=== PATIENT | male | born 1985 | race African-American/Black ===

== ENCOUNTER 2023-12-26 16:02 | Emergency (ER) | payer OTHER ==
[2023-12-26 16:27] VITALS: O2SAT 100
--- NOTE | 2023-12-26 16:34 | ED Physician Documentation ---
PD HPI UPPER EXT INJURY - Stated complaint Stated Complaint: RT THUMB PX - Chief complaint Chief Complaint: Ext Problem - History obtained from History obtained from: Patient - History of Present Illness Location: Right, Finger (thumb volar distal phalanx just beyond the DIP.) Where injury occurred: Home Timing - onset: How many months ago (he has noted a lump in end of thumb for months. Slightly bigger ecently. No pain nor tenderness. No redness. Had made appt with [facility] about it, but they were busy at his appt time today and referred him to the ER.) Timing - duration: Months Timing - details: Gradual onset Worsened by: No: Moving, Palpating Associated symptoms: Swelling. No: Weakness, Numbness Similar symptoms before: Has not had sx before PD PAST MEDICAL HISTORY - Past Medical History Past Medical History: Yes Cardiovascular: Hypertension - Past Surgical History Past Surgical History: No - Present Medications Home Medications: Ambulatory Orders Medication Instructions Recorded Confirmed Home Medications Unobtainable 12/26/23 12/26/23 [HOME MEDICATIONS UNOBTAINABLE] - Allergies Allergies/Adverse Reactions: Allergies Allergy/AdvReac Type Severity Reaction Status Date / Time No Known Drug Allergies Allergy Verified 12/26/23 16:20 - Social History Does the pt smoke?: Yes Smoking Status: Current some day smoker Does the pt drink ETOH?: No Does the pt have substance abuse?: No - Immunizations Immunizations are current?: Yes PD ED PE NORMAL - Vitals Vital signs reviewed: Yes - General General: Alert and oriented X 3, No acute distress, Well developed/nourished - Derm Derm: Normal color, Warm and dry - Extremities Extremities: Other (right thumb with rounded firm lump feeling under fatty tissue and feels unmoving. Not tender. No redness. ) Results - Rads (name of study) thumb xray Relevant Findings:: Prelim report reviewed (no bony defects. ), EMP independent interpretation of test PD Medical Decision Making - ED course Complexity details: considered differential (firm rounded lump about 3-4 mm size volar aspect. Not mobile. Xray without bony defect. Bedside US showing the area to have demarcated capsule looking appearance and fluid inside. Presume mucoid or ganglion cyst. ), d/w patient ED course: It does not hurt him and is at thumb tip, which would be sensitive to poke at. So shared discussion is to leave it alone unless it starts bothering him (tender, red, or signs of infection). Departure - Departure Disposition: 01 Home, Self Care Clinical Impression: Cyst of finger Condition: Stable Record reviewed to determine appropriate education?: Yes Follow-Up: [facility] [Provider Group] Comments: Your x-ray appears normal without any bones as, spurs, arthritic growth. Bedside ultrasound shows that area to be fluid-filled but demarcated so looking like a cyst. The ones in this area can be fluid out of the joint space which will be firm and hard. These are called ganglion cyst. Sometimes you can get other fluid collected for example from a deeper sweat gland or such called a mucoid cyst. Both of these are benign and do not need attention or attempts at decompression if they are not bothering you. Since this is not bothering you I would just leave it alone. At such time if it gets a little bit bigger or tender then the initial treatment would be attempt at needle decompression and see if it would stay away. Again most of the time these are just left alone. Forms: PCP List Discharge Date/Time: 12/26/23 17:40
--- NOTE | 2023-12-26 17:13 | XRAY Report ---
PROCEDURE: Finger(s) RT INDICATIONS: right thumb tip lump TECHNIQUE: AP hand, 2 views of the first finger(s) acquired. COMPARISON: None. FINDINGS: Bones: No fractures or dislocations. No suspicious bony lesions. Soft tissues: No suspicious soft tissue calcifications or masses. Possible mild prominence of the so ft tissues of the volar distal thumb. IMPRESSION: There may be mild prominence of the soft tissues of the volar distal thumb in the area of concern. So ft tissues are not well evaluated by radiograph, consider ultrasound or cross-sectional imaging for f urther evaluation. Reviewed by: Xavier Mccullough MD on 12/26/2023 5:12 PM PDT Approved by: Xavier Mccullough MD on 12/26/2023 5:12 PM PDT Station ID: [id number]
[2023-12-26 17:44] VITALS: BP 150/88
== END 2023-12-26 17:40 | disposition home or self-care (01) ==
LOC: ED 16:02
DX: L72.9 Follicular cyst of the skin and subcutaneous tissue, unspecified (principal); I10 Essential (primary) hypertension; F17.200 Nicotine dependence, unspecified, uncomplicated
CPT/HCPCS: 99283

== ENCOUNTER 2024-03-30 10:12 | Emergency (ER) | payer OTHER ==
[2024-03-30 10:40] LABS: EOSINOPHILS # (AUTO) 0.1 10^3/uL (0.0-0.7); EOSINOPHILS % (AUTO) 0.8 %; HGB - HEMOGLOBIN 15.2 g/dL (14.0-18.0); MEAN CORPUSCULAR VOLUME 79.8 fL (80.0-94.0); NEUTROPHILS # (AUTO) 3.6 10^3/uL (1.5-6.6)
[2024-03-30 10:45] LABS: BASOPHILS % (AUTO) 0.7 %; HCT - HEMATOCRIT 44.2 % (42.0-52.0); LYMPHOCYTES # (AUTO) 1.7 10^3/uL (1.5-3.5); LYMPHOCYTES % (AUTO) 27.8 %; MEAN CORPUSCULAR HEMOGLOBIN 27.4 pg (27.0-31.0); MEAN CORPUSCULAR HGB CONC 34.4 g/dL (32.0-36.0); MEAN PLATELET VOLUME 11.8 fL (7.4-11.4); MONOCYTES # (AUTO) 0.7 10^3/uL (0.0-1.0); MONOCYTES % (AUTO) 11.6 %; NEUTROPHILS % (AUTO) 58.8 %; PLT - PLATELET COUNT 244 10^3/uL (130-450); RED BLOOD COUNT 5.54 10^6/uL (4.70-6.10); RED CELL DISTRIBUTION WIDTH 12.1 % (12.0-15.0); WHITE BLOOD COUNT 6.1 x10^3/uL (4.8-10.8)
[2024-03-30 10:49] LABS: BILIRUBIN,URINE NEGATIVE (NEGATIVE); GLUCOSE, URINE (UA) NEGATIVE (NEGATIVE); KETONES,URINE (UA) NEGATIVE (NEGATIVE); LEUKOCYTE ESTERASE, URINE NEGATIVE (NEGATIVE); NITRITE,URINE NEGATIVE (NEGATIVE); OCCULT BLOOD,URINE NEGATIVE (NEGATIVE); PROTEIN,URINE NEGATIVE (NEGATIVE); UROBILINOGEN,URINE 0.2 (NORMAL) E.U./dL (NORMAL)
--- NOTE | 2024-03-30 10:54 | ED Physician Documentation ---
PD HPI ABD PAIN - Stated complaint Stated Complaint: RT SIDE ABD PX - Chief complaint Chief Complaint: Abd Pain - History obtained from History obtained from: Patient - History of Present Illness Timing - onset: Last night (onset during night of cramping then steady right lower abd pain to periumbilical area, associated with nausea and emesis, and watery/soft diarrheal movements several times, into this morning. Seen at [facility] and referred to ED.) Timing - duration: Hours (8) Timing - details: Gradual onset, Still present Quality: Cramping, Aching, Pain Associated symptoms: Nausea, Vomiting, Diarrhea, Loss of appetite. No: Constipation Similar symptoms before: Has not had sx before PD PAST MEDICAL HISTORY - Past Medical History Past Medical History: Yes Cardiovascular: Hypertension Respiratory: None Neuro: None Endocrine/Autoimmune: None GI: None : None HEENT: None Psych: None Musculoskeletal: None Derm: None - Past Surgical History Past Surgical History: No - Present Medications Home Medications: Ambulatory Orders Medication Instructions Recorded Confirmed Amox/Clav 875/125 [Augmentin] 1 each PO BID #10 tablet 03/30/24 Chlorthalidone 50 mg PO DAILY 03/30/24 03/30/24 Diphenoxylate/Atropine [Lomotil] 1 each PO QID PRN #10 tablet 03/30/24 Naproxen 500 mg PO BID #15 tab 03/30/24 Ondansetron Odt [Zofran] 4 mg TL Q6H PRN #10 tablet 03/30/24 - Allergies Allergies/Adverse Reactions: Allergies Allergy/AdvReac Type Severity Reaction Status Date / Time No Known Drug Allergies Allergy Verified 03/30/24 10:22 - Social History Does the pt smoke?: No Smoking Status: Former smoker Does the pt drink ETOH?: Yes Does the pt have substance abuse?: No - Immunizations Immunizations are current?: Yes - POLST Patient has POLST: No PD ED PE NORMAL - Vitals Vital signs reviewed: Yes - General General: Alert and oriented X 3, Well developed/nourished - Cardiac Cardiac: RRR, No murmur - Respiratory Respiratory: No respiratory distress, Clear bilaterally - Abdomen Abdomen: Normal bowel sounds, Soft, Non distended, No organomegaly, Other (focall tender RLQ with guarding, percussion and rebound tenderness in RLQ. Referred tenderness from LLQ to the right. Upper abd not tedner. ) Results - Vitals Vitals: Vital Signs - 24 hr 03/30/24 03/30/24 03/30/24 10:22 10:41 12:39 Temperature 36.5 C Heart Rate 80 63 69 Respiratory 16 16 Rate Blood Pressure 137/95 H 157/51 H 139/92 H O2 Saturation 99 96 96 03/30/24 14:00 Temperature 36.5 C Heart Rate 69 Respiratory 16 Rate Blood Pressure 121/88 H O2 Saturation 99 Oxygen O2 Source Room air - Labs Labs: Laboratory Tests 03/30/24 03/30/24 03/30/24 10:30 10:35 10:35 WBC 6.1 RBC 5.54 Hgb 15.2 Hct 44.2 MCV 79.8 L MCH 27.4 MCHC 34.4 RDW 12.1 Plt Count 244 MPV 11.8 H Neut # (Auto) 3.6 Lymph # (Auto) 1.7 Edmunds # (Auto) 0.7 Eos # (Auto) 0.1 Baso # (Auto) 0.0 Absolute Nucleated RBC 0.00 Nucleated RBC % 0.0 Sodium 133 L Potassium 2.6 L Chloride 90 L Carbon Dioxide 34 H Anion Gap 9.0 BUN 7 Creatinine 1.1 Estimated GFR (MDRD) 92 Glucose 107 H Calcium 10.6 H Magnesium Total Bilirubin 1.2 H AST 41 ALT 58 Alkaline Phosphatase 83 Total Protein 8.6 Albumin 5.3 Globulin 3.3 Albumin/Globulin Ratio 1.6 Lipase 40 Urine Color YELLOW Urine Clarity CLEAR Urine pH 7.0 Ur Specific [place] 1.010 Urine Protein NEGATIVE Urine Glucose (UA) NEGATIVE Urine Ketones NEGATIVE Urine Occult Blood NEGATIVE Urine Nitrite NEGATIVE Urine Bilirubin NEGATIVE Urine Urobilinogen 0.2 (NORMAL) Ur Leukocyte Esterase NEGATIVE Ur Microscopic Review NOT INDICATED Urine Culture Comments NOT INDICATED 03/30/24 10:35 WBC RBC Hgb Hct MCV MCH MCHC RDW Plt Count MPV Neut # (Auto) Lymph # (Auto) Edmunds # (Auto) Eos # (Auto) Baso # (Auto) Absolute Nucleated RBC Nucleated RBC % Sodium Potassium Chloride Carbon Dioxide Anion Gap BUN Creatinine Estimated GFR (MDRD) Glucose Calcium Magnesium 1.9 Total Bilirubin AST ALT Alkaline Phosphatase Total Protein Albumin Globulin Albumin/Globulin Ratio Lipase Urine Color Urine Clarity Urine pH Ur Specific [place] Urine Protein Urine Glucose (UA) Urine Ketones Urine Occult Blood Urine Nitrite Urine Bilirubin Urine Urobilinogen Ur Leukocyte Esterase Ur Microscopic Review Urine Culture Comments - Rads (name of study) abd/pelvic CT Relevant Findings:: Prelim report reviewed (wall inflammation of the ascending colon to more degree than rest of colon. Appendix normal. ), EMP independent interpretation of test PD Medical Decision Making - ED course Complexity details: reviewed results (CT showing wall inflammation of colon to mild degree, more notable ascending colon. Appendix is normal. ), re-evaluated patient (he is feeling better with less pain and now not nauseated with IV fluids/meds. ), considered differential (abd pain with local peritoneal signs on exam RLQ concering for appy. Though the amount of diarrhea is not common. Not having pain nor tender elsewhere. ), d/w patient ED course: onset during night of cramping then steady right lower abd pain to periumbilical area, associated with nausea and emesis, and watery/soft diarrheal movements several times, into this morning. Seen at [facility] clinic and referred to ED. Departure - Departure Disposition: 01 Home, Self Care Clinical Impression: Right lower quadrant abdominal pain, Diarrhea, Acute colitis Condition: Stable Record reviewed to determine appropriate education?: Yes Follow-Up: [facility] [Provider Group] Prescriptions: Amox/Clav 875/125 [Augmentin] 1 each PO BID #10 tablet Diphenoxylate/Atropine [Lomotil] 1 each PO QID PRN #10 tablet PRN Reason: Diarrhea Naproxen 500 mg PO BID #15 tab Ondansetron Odt [Zofran] 4 mg TL Q6H PRN #10 tablet PRN Reason: Nausea / Vomiting Comments: Your appendix is normal on the CT scan. You do have in particular an area of inflammation of the intestine nearby that area. This can be a viral cause or sometimes an irritation from foods or such. However given the localized area of the pain and inflammation on the scan, I be more inclined to think a bacterial infection locally (acute colitis). Will treat this with an anti-inflammatory and antibiotic. For symptoms nausea medicine and antidiarrhea medicine. To that add Tylenol every 4-6 hours if needed for pains. I sent your prescriptions to the [facility] pharmacy as the [facility] pharmacy will be closing soon enough. Small frequent fluids and bland food in the next couple of days. Recheck with your primary care base return to the ER if not improving well over the next few days and sooner if worse. Forms: PCP List, Activity restrictions Discharge Date/Time: 03/30/24 15:18
[2024-03-30 10:55] LABS: ALBUMIN 5.3 g/dL (3.2-5.5); ALBUMIN/GLOBULIN RATIO 1.6 (1.0-2.2); BILIRUBIN,TOTAL 1.2 mg/dL (0.2-1.0); CALCIUM 10.6 mg/dL (8.5-10.3); CREATININE 1.1 mg/dL (0.6-1.3); POTASSIUM 2.6 mmol/L (3.5-4.5); TOTAL PROTEIN 8.6 g/dL (6.4-8.9)
[2024-03-30 10:55] LABS: CLARITY,URINE CLEAR (CLEAR)
[2024-03-30] MEDS ORDERED: iohexoL-300 100 ML VIAL ONE (11:10)
[2024-03-30] MEDS: KETOROLAC 15 MG/ML VIAL IVP STA (11:32)
[2024-03-30] MEDS: ONDANSETRON 4 MG/2 ML VIAL IVP STA (11:32)
[2024-03-30] MEDS: POTASSIUM CHLOR 10 MEQ/100 ML 10 MEQ/100 ML BAG IV ONE (11:32)
--- NOTE | 2024-03-30 13:20 | CT Report ---
PROCEDURE: Abdomen/Pelvis W INDICATIONS: RLQ pain since overnight CONTRAST: Omni 300 100ml TECHNIQUE: After the administration of intravenous contrast, a CT scan of the abdomen and pelvis was performed. Images were recorded and evaluated at appropriate window settings. Reformats: coronal and sagittal. F or radiation dose reduction, the following was used: automated exposure control, adjustment of mA and /or kV according to patient size. COMPARISON: None. FINDINGS: Image quality: Diagnostic. Lower chest: Unremarkable. Liver: Hepatic steatosis. Gallbladder: No radiopaque stones or wall thickening. Biliary tree: No intrahepatic or extrahepatic dilation, accounting for age. Spleen: No splenomegaly. Pancreas: No pancreatic ductal dilation. No peripancreatic inflammation. Adrenals: No adrenal nodule. Kidneys and ureters: No hydronephrosis. No renal cystic lesion which requires follow up. No solid mas s. Ureters are normal in course and caliber. Stomach, bowel and peritoneum: No gastric or small bowel dilation. There is minimal circumferential w all thickening of the ascending colon compared to other segments of colon of comparable distention. H owever, no significant pericolonic stranding identified. The appendix is normal. No pathologic free f luid. Lymph nodes: No central or retroperitoneal adenopathy. Vessels: No infrarenal aortic aneurysm. Patent portal vein. PELVIS Reproductive organs: Unremarkable. Bladder: No abnormal wall thickening, accounting for underdistention. Pelvic lymph nodes: No pelvic adenopathy by size criteria. Bones: No aggressive osseous abnormality. No acute compression fractures. Other: No significant ventral or inguinal hernia. IMPRESSION: Compared to other segments of similarly distended colon, there is mild circumferential thickening of the ascending colon without significant inflammatory changes. This is nonspecific but may represent e kristal colitis either infectious or inflammatory in etiology. Otherwise, the appendix is normal. No shannon dence for small bowel obstruction. No other acute abnormalities identified in the abdomen or pelvis. Hepatic steatosis. Reviewed by: Galileo Olson MD on 03/30/2024 1:19 PM PDT Approved by: Galileo Olson MD on 03/30/2024 1:19 PM PDT Station ID: [id number]
[2024-03-30 14:22] VITALS: BP 121/88; O2SAT 99
[2024-03-30] MEDS: ACETAMINOPHEN 500 MG TABLET PO STA (14:49)
[2024-03-30] MEDS: AMOX/CLAV 875 MG/125 MG TABLET PO STA (14:50)
[2024-03-30] MEDS: iohexoL-300 100 ML VIAL IVP ONE (16:41)
== END 2024-03-30 15:18 | disposition home or self-care (01) ==
LOC: ED 10:12
DX: K52.9 Noninfective gastroenteritis and colitis, unspecified (principal); I10 Essential (primary) hypertension; Z79.899 Other long term (current) drug therapy
CPT/HCPCS: 36415; 74177; 80053; 81003; 83690; 83735; 85025; 96365; 96375; 99284; A9270; Q9967; 81001; 87086